=== PATIENT | female | born 1970 | race Caucasian/White ===

== ENCOUNTER 2017-05-03 18:24 | Emergency (ER) | payer OTHER ==
[~2017-05-03] VITALS: Ht 160 cm; Wt 64.4 kg
[~2017-05-03 18:24] MED LIST: PRILOSEC OTC20 MG PO; TESSALON PERLE100 MG PO; VITAMIN D50000 IU PO; ZOFRAN ODT4 M1 SL; ZOFRAN ODT4 MG PO
[2017-05-03 19:57] LABS: ABSOLUTE BASOPHIL COUNT 0.1 /CUMM (0.0-0.2); ABSOLUTE EOSINOPHIL COUNT 0 /CUMM (0.0-0.7); ABSOLUTE GRANULOCYTE CT 7.6 /CUMM (1.4-6.5); ABSOLUTE LYMPH COUNT 1.1 /CUMM (1.2-3.4); ABSOLUTE MONOCYTE COUNT 0.4 /CUMM (0.10-0.60); BASOPHIL % 0.5 % (0.0-2.0); EOSINOPHIL % 0.4 % (0-5); GRANULOCYTE % 82.7 % (42.2-75.2); HEMATOCRIT 36.2 % (37-47); MEAN CORPUSCULAR HGB 26.8 PG (27.0-31.0); MEAN CORPUSCULAR HGB CONC 32.5 G/DL (33.0-37.0); MEAN CORPUSCULAR VOLUME 82.5 FL (81.0-99.0); MEAN PLATELET VOLUME 7.7 FL (7.4-10.4); PLATELET COUNT 366 /CUMM (130-400); RBC DISTRIBUTION WIDTH 14.9 % (11.5-14.5); RED BLOOD CELL CT 4.39 /CUMM (4.20-5.40); WHITE BLOOD CELL COUNT 9.3 /CUMM (4.8-10.8)
--- NOTE | 2017-05-03 20:21 | ED GI/GU/ABDOMINAL COMPLAINT ---
History of Present Illness General Chief Complaint: Abdominal Pain/Flank Pain Stated Complaint: ABD PAIN,WEAKNESS Source: patient Exam Limitations: no limitations Vital Signs & Intake/Output Vital Signs & Intake/Output Vital Signs Date Time Temp Pulse Resp B/P B/P Pulse O2 O2 Flow FiO2 Mean Ox Delivery Rate 05/03 2151 98.5 61 19 124/80 97 Room Air 05/03 1828 97.9 70 18 128/81 98 Room Air ED Intake and Output 05/04 0000 05/03 1200 Intake Total Output Total Balance Patient 142 lb Weight Allergies Coded Allergies: NO KNOWN ALLERGIES (06/11/15) Reconcile Medications Ondansetron (Zofran Odt) 4 MG TAB.RAPDIS 1 TAB SL TID PRN nausea Ondansetron HCl (Zofran) 4 MG TABLET 1 TAB PO Q6-8P PRN NAUSEA Triage Note: COMPLAINS OF UPPER ABD PAIN AND NAUSEA AND BURPING THAT STARTED THIS AM. PAIN IS CONSTANT Triage Nurses Notes Reviewed? yes ? N Is pt currently ? No (N) Duration: constant Timing: single episode today Severity Numbers: 5 Location: epigastric Radiation: no radiation Activities at Onset: none HPI: Patient is a 47-year-old female with an unremarkable past medical history of present emergency room stating that today patient was in her normal state of health until approximately 11 AM she had gradual onset of generalized weakness fatigue and epigastric mild cramping discomfort with persistent nausea throughout the day, patient has had decreased by mouth intake however can tolerate by mouth liquids with no change in symptoms, patient denies any fevers chest pain shortness of breath arm pain jaw pain cough back pain dysuria hematuria vaginal bleeding or discharge. Denies any significant alcohol use or NSAID use. Denies any significant recurrence of her pain prior to today, patient did have a bowel movement today no blood no melena noted Patient does admit to a very healthy dietary intake (Luis Maynard) Past History Travel History Traveled to [place] past 21 day No Medical History Any Pertinent Medical History? 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 No (Luis Maynard) Review of Systems Review of Systems Constitutional: Reports: no symptoms. EENTM: Reports: no symptoms. Respiratory: Reports: no symptoms. Cardiovascular: Reports: no symptoms. GI: Reports: see HPI, abdominal pain, nausea. Genitourinary: Reports: no symptoms. Musculoskeletal: Reports: no symptoms. Skin: Reports: no symptoms. Neurological/Psychological: Reports: no symptoms. Hematologic/Endocrine: Reports: no symptoms. Immunologic/Allergic: Reports: no symptoms. All Other Systems: Reviewed and Negative (Luis Maynard) Physical Exam Physical Exam General Appearance: no apparent distress, comfortable, obese Head: atraumatic Eyes: Bilateral: normal appearance. Ears, Nose, Throat, Mouth: hearing grossly normal, moist mucous membrane Neck: normal inspection Respiratory: normal breath sounds, no respiratory distress Cardiovascular: regular rate/rhythm Peripheral Pulses: 2+ radial (R) Gastrointestinal: normal bowel sounds, soft, EPIGASTRIC AND RUQ PAIN Extremities: normal range of motion Neurologic/Psych: no motor/sensory deficits, awake, alert Skin: intact, normal color, warm/dry Core Measures ACS in differential dx? No Sepsis Present: No Sepsis Focused Exam Completed? No (Luis Maynard) Progress Differential Diagnosis: AAA, AMI, appendicitis, biliary colic, bowel obstruction , colon cancer, cholecystitis, diverticulitis, ectopic , endometritis, esophageal varices, gastritis, hepatitis, hernia, hemorrhoids, ischemic bowel, inflamm bowel dis, intrauterine , kidney stone, ovarian cyst, ovarian torsion, pancreatitis, PID/cervicitis, peptic ulcer, PUD/GERD, perforated viscous, SBO, UTI/pyelo Plan of Care: Orders Procedure Date/time Status Add-on Test (ER Only) 05/03 2053 Active Add-on Test (ER Only) 05/03 2045 Active RAPID VIRAL INFLUENZA A 05/03 1958 Complete TROPONIN LEVEL 05/03 194 Complete LIPASE 05/03 194 Complete HUMAN BETA HCG SCREEN 05/03 1946 Complete AMYLASE 05/03 1946 Complete URINALYSIS 05/03 183 Complete LACTIC ACID 05/03 1830 Complete COMPREHENSIVE METABOLIC PANEL 05/03 183 Complete CBC WITHOUT DIFFERENTIAL 05/03 183 Complete Laboratory Tests 05/03/17 2130: Lactic Acid Cancelled 05/03/171946: Anion Gap 13, Estimated GFR > 60, BUN/Creatinine Ratio 21.7, Glucose 98, Lactic Acid 0.9, Calcium 8.7, Total Bilirubin 0.4, AST 24, ALT 37, Alkaline Phosphatase 77, Troponin I < 0.01, Total Protein 7.0, Albumin 4.2, Globulin 2.8, Albumin/ Globulin Ratio 1.5, Amylase 85, Lipase 73, Total Beta HCG NEGATIVE, CBC w Diff NO MAN DIFF REQ, RBC 4.39, MCV 82.5, MCH 26.8 L, MCHC 32.5 L, RDW 14.9 H, MPV 7.7, Gran % 82.7 H, Lymphocytes % 11.6 L, Monocytes % 4.8, Eosinophils % 0.4, Basophils % 0.5, Absolute Granulocytes 7.6 H, Absolute Lymphocytes 1.1 L, Absolute Monocytes 0.4, Absolute Eosinophils 0, Absolute Basophils 0.1 05/03/171940: Urinalysis MOD H, Urine Color YEL, Urine Clarity HAZY H, Urine pH 6.0, Ur Specific [place] >= 1.030, Urine Protein TRACE H, Urine Ketones NEG, Urine Nitrite NEG, Urine Bilirubin NEG, Urine Urobilinogen 0.2, Ur Leukocyte Esterase NEG, Ur Microscopic SEDIMENT EXAMINED, Urine RBC 1-3, Urine WBC 3-5 H, Ur Epithelial Cells MOD H, Urine Bacteria FEW H, Urine Hemoglobin TRACE-INTACT, Urine Glucose NEG Microbiology 05/03 2014 NASOPHARYN: Influenza Virus A & B Rapid Smear - COMP Patient upon initial presentation was resting comfortably at bedside Patient has right upper quadrant and epigastric pain on exam no peritoneal signs no rebound tenderness no right lower quadrant pain patient had unremarkable blood work concerns of appendicitis had multiple extended competitions with patient with concerns of biliary colic However no overt findings at this time of leukocytosis fever or elevated liver function or biliary enzymes No peritoneal signs patient afebrile Patient after IV fluids and antinausea medication was administered had complete resolution of symptoms patient was able tolerate by mouth patient was given prescription of outpatient ultrasound Upon discharge patient looks well no apparent distress and will comply with discharge instructions and had no questions Again upon discharge patient has no right lower quadrant pain afebrile nontoxic appearing Initial ED EKG: none (Mike BRAVO,Luis) Departure Departure Disposition: HOME OR SELF CARE Condition: Stable Clinical Impression Primary Impression: Epigastric pain Secondary Impressions: Nausea Referrals: Maral Cedneo DO (PCP/Family) Jermain Vaughn MD Additional Instructions: As discussed begin [id number] Motrin or Tylenol for pain, begin the prescription Zofran for nausea, begin a 48 hours history of clear liquid and bland diet to rest her bowels, prescription is waiting in [facility], tomorrow if symptoms still persist please call the department of radiology central scheduling number at [phone] to SCHEDULE AN ultrasound, if no better in 2 days follow-up with professor of early childhood education Dr. Vaughn. If symptoms worsen or if YOU develop fevers or worsening pain return to emergency room Departure Forms: Customer Survey General Discharge Information Prescriptions: Current Visit Scripts Ondansetron HCl (Zofran) 1 TAB PO Q6-8P PRN NAUSEA #10 TAB (Luis Maynard) PA/[employer] INSTRUCTOR Co-Sign Statement Statement: ED Attending supervision documentation- [] I saw and evaluated the patient. I have also reviewed all the pertinent lab results and diagnostic results. I agree with the findings and the plan of care as documented in the PA's/AQUAT[employer] FITNESS INSTRUCTOR's documentation. [x] I have reviewed the ED Record and agree with the PA's/AQUAT[employer] GROUP FITNESS INSTRUCTOR's documentation. [] Additions or exceptions (if any) to the PAs/AQUATICS GROUP FITNESS INSTRUCTOR's note and plan are summarized below: [] (Abimael SCOTT,Gavin Grant)
[2017-05-03 21:51] VITALS: BP 124/80
[2017-05-03] MEDS ORDERED: ZOFRAN4 M2 PO (23:10)
== END 2017-05-03 23:30 ==
LOC: ERH 18:24
PROVIDERS: Emergency Medicine
DX: R10.13 Epigastric pain (principal); R11.0 Nausea
CPT/HCPCS: 81001; 87804; 87804-59; 96361; 96374; J2405

== ENCOUNTER 2017-10-31 03:15 | Emergency (ER) | payer OTHER ==
[~2017-10-31] VITALS: Ht 160 cm; Wt 74.8 kg
[~2017-10-31 03:15] MED LIST changes: +ZOFRAN4 M2 PO
[2017-10-31 03:26] VITALS: BP 109/71
--- NOTE | 2017-10-31 03:43 | ED GI/GU/ABDOMINAL COMPLAINT ---
History of Present Illness General Chief Complaint: Nausea, Vomiting, Diarrhea Stated Complaint: DIARRHEA Source: patient Exam Limitations: no limitations Vital Signs & Intake/Output Vital Signs & Intake/Output Vital Signs Date Time Temp Pulse Resp B/P B/P Pulse O2 O2 Flow FiO2 Mean Ox Delivery Rate 10/31 0326 98.1 80 18 109/71 97 Room Air Allergies Coded Allergies: NO KNOWN ALLERGIES (06/11/15) Reconcile Medications Diphenoxylate HCl/Atropine (Lomotil 2.5-0.025 MG Tablet) 2.5 MG-0.025 MG TABLET 1-2 TAB PO 4 TIMES/DAY diarrhea thirty...[id number] Ondansetron (Zofran Odt) 4 MG TAB.RAPDIS 1 TAB SL TID PRN nausea Ondansetron HCl (Zofran) 4 MG TABLET 1 TAB PO Q6-8P PRN NAUSEA Triage Note: PT POV FROM HOME FOR DIARRHEA FOR PAST FEW MONTHS BUT HAS BEEN WORSE PAST FEW DAYS. NO ABD PAIN. PT STATES SHE HAS SEEN A "LITTLE BLOOD A FEW TIMES". IN NAD @ THIS TIME Triage Nurses Notes Reviewed? yes ? N Is pt currently ? No Onset: Gradual Duration: day(s): Timing: recent history Quality/Severity: cramping Location: generalized abdomen Radiation: no radiation Activities at Onset: none Prior Abdominal Problems: none Modifying Factors: Worsens With: defecating. Associated Symptoms: diarrhea HPI: 47 yo woman, in prior good health, presents with 4 days of loose watery mucusy stools, without nausea, vomiting, fever, dysuria, abdominal pain. She is uncertain about the etiology. Past History Travel History Traveled to [place] past 21 day No Medical History Any Pertinent Medical History? 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 No Review of Systems Review of Systems Constitutional: Reports: no symptoms. EENTM: Reports: no symptoms. Respiratory: Reports: no symptoms. Cardiovascular: Reports: no symptoms. GI: Reports: no symptoms. Genitourinary: Reports: no symptoms. Musculoskeletal: Reports: no symptoms. Skin: Reports: no symptoms. Neurological/Psychological: Reports: no symptoms. Hematologic/Endocrine: Reports: no symptoms. Immunologic/Allergic: Reports: no symptoms. All Other Systems: Reviewed and Negative Physical Exam Physical Exam General Appearance: well developed/nourished, no apparent distress Head: atraumatic, normal appearance Eyes: Bilateral: normal appearance. Ears, Nose, Throat, Mouth: hearing grossly normal, moist mucous membrane Neck: normal inspection, supple, full range of motion Respiratory: normal breath sounds, chest non-tender, no respiratory distress, quiet respiration, lungs clear Cardiovascular: regular rate/rhythm Gastrointestinal: normal bowel sounds, soft, non-tender, no organomegaly Back: normal inspection, normal range of motion Extremities: normal range of motion Neurologic/Psych: no motor/sensory deficits, awake, alert, oriented x 3 Skin: intact, normal color, warm/dry Core Measures ACS in differential dx? No Sepsis Present: No Sepsis Focused Exam Completed? No Progress Differential Diagnosis: gastroenteritis, ibs, food poisoning vs other. Plan of Care: Orders Procedure Date/time Status LIPASE 10/31 342 Complete HEPATIC FUNCTION PANEL 10/31 342 Complete CBC WITHOUT DIFFERENTIAL 10/31 342 Complete BASIC METABOLIC PANEL 10/31 342 Complete AMYLASE 10/31 342 Complete Laboratory Tests 10/31/17 0346: Anion Gap 11, Estimated GFR > 60, BUN/Creatinine Ratio 25.7 H, Glucose 92, Calcium 9.0, Total Bilirubin 0.4, Direct Bilirubin 0.2, AST 28, ALT 35, Alkaline Phosphatase 82, Total Protein 7.5, Albumin 4.3, Amylase 68, Lipase 115, CBC w Diff NO MAN DIFF REQ, RBC 4.44, MCV 82.5, MCH 27.9, MCHC 33.8, RDW 13.6, MPV 7.7 , Gran % 60.7, Lymphocytes % 29.6, Monocytes % 8.5, Eosinophils % 0.6, Basophils % 0.6, Absolute Granulocytes 4.3, Absolute Lymphocytes 2.1, Absolute Monocytes 0.6, Absolute Eosinophils 0, Absolute Basophils 0 Initial ED EKG: none Departure Departure Disposition: HOME OR SELF CARE Condition: Stable Clinical Impression Primary Impression: Diarrhea Referrals: Unknown (PCP/Family) Departure Forms: Customer Survey General Discharge Information Prescriptions: Current Visit Scripts Diphenoxylate HCl/Atropine (Lomotil 2.5-0.025 MG Tablet) 1-2 TAB PO 4 TIMES/DAY #30 TAB thirty...[id number] Comments 10/31/17, 504am... pt feels well in ED, labs benign, non tender abdomen... discussed at length... will defer CT Scan due to benign exam/labs... pt to follow up with GI, will take lomotil prn for short course.
[2017-10-31 03:55] LABS: ABSOLUTE BASOPHIL COUNT 0 /CUMM (0.0-0.2); ABSOLUTE EOSINOPHIL COUNT 0 /CUMM (0.0-0.7); ABSOLUTE GRANULOCYTE CT 4.3 /CUMM (1.4-6.5); ABSOLUTE LYMPH COUNT 2.1 /CUMM (1.2-3.4); ABSOLUTE MONOCYTE COUNT 0.6 /CUMM (0.10-0.60); BASOPHIL % 0.6 % (0.0-2.0); EOSINOPHIL % 0.6 % (0-5); GRANULOCYTE % 60.7 % (42.2-75.2); HEMATOCRIT 36.6 % (37-47); MEAN CORPUSCULAR HGB 27.9 PG (27.0-31.0); MEAN CORPUSCULAR HGB CONC 33.8 G/DL (33.0-37.0); MEAN CORPUSCULAR VOLUME 82.5 FL (81.0-99.0); MEAN PLATELET VOLUME 7.7 FL (7.4-10.4); PLATELET COUNT 345 /CUMM (130-400); RBC DISTRIBUTION WIDTH 13.6 % (11.5-14.5); RED BLOOD CELL CT 4.44 /CUMM (4.20-5.40)
[2017-10-31] MEDS ORDERED: LOMOTIL 2.5-0.1 EACH PO (05:03)
== END 2017-10-31 05:09 ==
LOC: ERH 03:15
PROVIDERS: Pediatrics
DX: R19.7 Diarrhea, unspecified (principal)